=== PATIENT | female | born 1960 | race Caucasian/White ===

== ENCOUNTER → 2023-12-04 06:42 | Outpatient (REF) | payer OTHER, SELFPAY | LOC: HWCARD 06:42 | PROVIDERS: ATTENDING PHYSICIAN Orthopaedic Surgery; FAMILY PHYSICIAN Family Medicine | DX: Z01.818 Encounter for other preprocedural examination (principal) | CPT/HCPCS: 93005 ==

== ENCOUNTER → 2024-03-11 11:55 | Outpatient (REF) | payer OTHER, SELFPAY | LOC: REG 11:55 | PROVIDERS: ATTENDING PHYSICIAN Nurse Practitioner Family | DX: R05.1 Acute cough (principal) | CPT/HCPCS: 71046 ==

== ENCOUNTER → 2024-05-26 07:14 | Outpatient (REF) | payer OTHER, SELFPAY | LOC: HWRAD 07:14 | PROVIDERS: ATTENDING PHYSICIAN Emergency Medicine | DX: Z87.01 Personal history of pneumonia (recurrent) (principal) | CPT/HCPCS: 71046 ==

== ENCOUNTER → 2024-09-21 15:38 | Outpatient (REF) | payer OTHER, SELFPAY | LOC: HWRCS 15:38 | PROVIDERS: ATTENDING PHYSICIAN Internal Medicine Interventional Cardiology; FAMILY PHYSICIAN Emergency Medicine | DX: R60.0 Localized edema (principal); I25.10 Atherosclerotic heart disease of native coronary artery without angina pectoris | CPT/HCPCS: 93306 ==

== ENCOUNTER → 2024-10-12 07:13 | Outpatient (REF) | payer OTHER, SELFPAY | LOC: HWRAD 07:13 | PROVIDERS: ATTENDING PHYSICIAN Emergency Medicine | DX: R60.0 Localized edema (principal); M25.561 Pain in right knee; M25.562 Pain in left knee | CPT/HCPCS: 73564; 93970 ==

== ENCOUNTER → 2024-12-30 07:23 | Outpatient (REF) | payer OTHER, SELFPAY | LOC: HWWDC 07:23 | PROVIDERS: ATTENDING PHYSICIAN Emergency Medicine | DX: Z12.31 Encounter for screening mammogram for malignant neoplasm of breast (principal) | CPT/HCPCS: 77063; 77067 ==